=== PATIENT | female | born 1945 | race Caucasian/White ===

== ENCOUNTER 2017-12-21 08:50 | Outpatient (RCR) | payer BC, SELFPAY ==
--- NOTE | 2017-12-21 13:03 | IE_ITS ---
Date: December 21, 2017 Referring: MD Alpesh Cardona M.D. Diagnosis: S/P L RCR and biceps tenodesis P.T. Diagnosis: Same SUBJECTIVE: Coleen states she has minimal discomfort. Only complains of occasional discomfort throughout the antecubital region and flexor surface of her L forearm, particularly nocturnally. This improves if she removes her arm from the sling for short periods of time. It will occasionally interfere with her sleeping patterns. She also complains of occasional discomfort throughout the L trap region. History of Present Illness: 71 yo female well known to me in the past with a cuff repair and biceps tenodesis of her R shoulder approx. 2 years ago. She injured her L shoulder last year and recently underwent a similar procedure for her L arm on 11/13. She was placed in an abduction sling and has been fairly compliant with this use. 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 Pain Ratin-4/10 Pain Location: Throughout the L trap and flexor surface of the forearm and elbow. Prior Level of Function: Independent with all ADLs. Current Level of Function: Unable to use her arm at or above shoulder level, lie on her L side, washing or blow drying her hair, etc.... Social: . 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 Comorbidities: S/P cuff R shoulder. Falls in the last year: __X__ No Reported hospitalizations in the last year - __X__ No Medications: Ibuprofen p.r.n. Quality of Life: __X__ Excellent Standardized Measures: DASH score: __76%__ OBJECTIVE: Posture: Petite. Shoulders and pelvis are level. Observation: (behavior, atrophy, skin color, etc.) Pleasant. No abnormal pain behavior noted. Expresses concern about reinjuring her shoulder. Palpation: Nontender over the AC/SC joints, subacromially or over the greater tuberosity. Mild tenderness able the posterior aspect of the humeral head. She also has some increased tone and tenderness throughout the PC 4,5,6, the middle trap and the rhomboids on the L compared to the R. ROM: Active cervical spine movements extension 60 degrees with mild deviation to the R. Rotation to the R 80 degrees, L 60 degrees. Side bending R 45 degrees compared to 50 at the L. She has end range drawing throughout the L trap with side bending to the R and rotation to the L. When testing her active shoulder movements: forward flexion in the sagittal plane 60 degrees and abduction 45 degrees with scapular substitution at end range and mild discomfort. R thumb is at the T8 level when reaching behind the back and L thumb is 3 in. below. Pure GH movement on the R is at 100 degrees, L 45-50 degrees. AAROM supine position: L shoulder flexion 120 Abduction 80 degrees ER with arm abducted at 45 degrees at 45 degrees IR 60 degrees. She has some mild end range discomfort throughout the GH joint with end range movements.None of these movements were forced. Elbow flexion and extension are full, as well as forearm supination and pronation.She has a Marquez deformity bilaterally. Strength: RC resistance was not performed or elbow flexion or forearm supination. Neuro: Intact. Special Tests: She has a positive Mireles-Papi impingement maneuver on the R. Treatment: IE along with mobilization of the cervical spine and myofascial trigger points and gentle mobilization of the L shoulder girdle with emphasis on the GH joint, along with pt education. IE: X [id number] Manual therapy: ([id number]). Direct treatment time: 60 min Total treatment time: 60 min ASSESSMENT: Patient is a 71-year-old female, referred for PT services with the diagnosis of s/p cuff repair and biceps tenodesis of the L shoulder. Patient presents with clinical signs and symptoms consistent with this diagnosis, as demonstrated by the following impairment level findings: limited ROM of the L shoulder, resulting in diffiuclty with all overhead activities including washing and drying her hair, donning and doffing her clothing, sleeping on L side, etc... Impairments are contributing to the following functional limitations: Patient is assessed as: __X__ Low 38134 complexity, based on the following: History: (list): Recent cuff repair and biceps tenodesis Examination: (list): X See above for functional limitations and impairments. Presentation: X Evolving Decision-Making: X Low complexity 76 % Disability based on DASH __X__ Patient requires skilled PT intervention to remediate the above functional limitations to return to: __X__ Premorbid level of function Prognosis: __X__ Good [] KX modifier to be utilized as justified by above documentation for necessity of continued Physical Therapy intervention to attend to functional deficits which have not been fully remediated as they approach their Medicare cap. STG: __6_ weeks. 1. Increase ROM of the L shoulder to within functional range while protecting the repair, with eventual strengthening exercises in order to normalize her functional use of her arm at or above shoulder level, sleeping on her L side, etc... LTG: __12__ weeks. __X__ Return to premorbid level of function. PLAN: Session today consisted of the evaluation, along with mobilization of the cervical spine, followed by trigger point release techniques to the above mentioned myofascial points. Also, gentle mobilization of the L shoulder girdle with emphasis on the GH joint not exceeding 45 degrees of ER. She is at the 6 week point on Sunday and will have her remove the sling at that time, other than use around her students, and initiate gradual active movements fo the LUE, etc... Will modify the program as her symptoms dictate. Thank you for this referral. Please do not hesitate to contact me with any questions or concerns regarding this patient's plan of care. ALVA/henrik cc:Anshu Gordon MD
== END 2017-12-21 23:59 | disposition home or self-care (01) ==
LOC: PT 08:50
PROVIDERS: PCP Student in an Organized Health Care Education/Training Program; Referring Provider Orthopaedic Surgery Sports Medicine; Visit Provider Orthopaedic Surgery Sports Medicine
DX: Z47.89 Encounter for other orthopedic aftercare (principal); M75.101 Unspecified rotator cuff tear or rupture of right shoulder, not specified as traumatic; M75.102 Unspecified rotator cuff tear or rupture of left shoulder, not specified as traumatic; M75.22 Bicipital tendinitis, left shoulder
CPT/HCPCS: 97140; 97161

== ENCOUNTER 2023-03-07 08:55 | Emergency (ER) | payer BC, SELFPAY ==
[2023-03-07 09:14] VITALS: BP 130/85; PULSE 71; RESP 20; TEMP 36.7; O2SAT 100
--- NOTE | 2023-03-07 09:22 | W.ED.GENAD ---
Discharge Plan Disposition Patient Disposition: Home Condition: Good Discharge Details Clinical Impression: Concussion, Effusion of knee, Contusion of knee Primary Care Provider: Lacie Mata ED Provider: Leonarda Jeff Home Meds and New Rx's Prescriptions: No Action ibuprofen 600 MG tablet 600 mg PO QID PRN (Reason: Pain) Qty: 30 0RF Discharge Instructions Instructions: Concussion (ED), Contusion in Adults (ED) Additional Instructions: As we discussed, the CT scan of your head is reassuring with no evidence of blood. However, I am worried that you have a concussion. As we discussed, please encourage hydration and brain rest. Please follow-up with your primary care in the next 1 to 2 weeks for reevaluation. Regard to your knee, there is no evidence of fracture but I am quite concerned given the amount of swelling that you have. Please encourage rest, ice, elevation. You may use Tylenol and ibuprofen as needed for discomfort. Please continue with the brace to help with swelling and pain as well as support the knee. It is recommended that you have an MRI to further evaluate the ligaments in the knee. Please keep your upcoming appointment with your orthopedic provider in [place]. Please bring the copy of your images with you as well. If you develop any new or worsening symptoms please seek care urgently once again. Referrals: Lacie Mata [Primary Care Provider] - Medical Decision Making Patient is a 77 year old female, brought in by son, with c/c of head, left shoulder and left knee injury. She reports that yesterday she was walking very quickly, patient is a very active dancer, and did not see a step down causing her to fall forward. She states that she initially landed directly onto her right knee. She then fell forward striking the anterior aspect of her head. She denies any loss of consciousness and was assisted by onlookers immediately. She reports that she immediately had hematoma on her forehead and was unable to flex or extend the right knee. Patient states that she also had some discomfort in the left shoulder but that this seems to be getting better. She was seen at urgent care where x-rays of her left shoulder, left hip and left knee were obtained all of which were read as negative. Patient concerned she not have ligamentous exam of the knee and does have a large effusion today. She denies any visual change, no vision nausea or vomiting. Patient is not anticoagulated. Reports that she does have a persistent mild headache for which has been taking Tylenol. On exam, patient appears nontoxic. She is resting comfortably in no acute distress. She does have a focal area of swelling and ecchymosis about the size of the circumferential tennis ball on her forehead. She is neurologically intact. No evidence of basilar skull fracture. Based on patient's age, mechanism of injury and persistant headache, we will move forward with CT of her head. Left shoulder appears to be much improved she is moving her self about the bed with this, no limitations in her range of motion. She of note, patient has had bilateral shoulder surgeries in [place] for rotator cuff repairs. Exam of the left knee is concerning for large effusion. No erythema or warmth. Flexion is slightly limited but she does have much more difficulty with extension. With passive extension, patient is able to get nearly to full. She has intact sensation, ambulatory with antalgic gait. Patient is unable to extend at the knee. She is able to flex at the hip without any discomfort. She had left hip replaced in September but does not have any pain in this area today. She able to range ankle well although she does report that with dorsiflexion, she does have some discomfort in the anterior aspect of the knee. No palpable deformity but quite tender over the patella. Concern for potential patellar patellar fracture or extensor mechanism injury. As her x-ray yesterday was read as negative, I do feel that moving forward with CT is appropriate at this time given high concern for fracture. Patient does have significant history of arthritis. No C-spine, T-spine or L-spine pain with palpation, good range of motion. Declines any analgesics at this time. CT head and knee reviewed by radiologist, no acute findigns. Radiologist does recommend patient have outpatient MRI with the large effusion noted. Foreign bodies were noted and patient was aware of these. Discussed these findings with the patient and her son at length. She is planning to return to [facility] to see her orthopedist next week. Copy of the imaging will be sent. Patient placed in a hinged knee brace to support given the size of the effusion as well as to aid in some stability. We did discuss activities that she should avoid. Return precautions were discussed. We did discuss draining the effusion but at this point, I do not feel that injecting with steroids would be appropriate and I am concerned that would likely recur. We will instead leave this to orthopedics to discuss further. Encouraged rest, ice, elevation. Tylenol and ibuprofen as needed for discomfort. All of her questions and concerns were addressed to screen this plan. Recommended concussion guidelines and discussed these at length with the patient and her son. HPI General Date/Time Provider Initiated Documentation: 03/07/23 09:22. Limitations to Documentation: no limitations. Information obtained by: patient, family (son) and RN notes reviewed. History of Present Illness 77 year old F presents to the emergency department with the chief complaint of head injury, left knee injury, described as moderate, Quality is described as aching, and is localized to the head, left and lower extremity. Patient reports no radiation. Patient started experiencing this day(s) (1) and it has been constant. Immobilization improves symptom(s), Movement worsens symptoms . Patient notes no other symptoms.. Patient did receive the following treatments prior to arrival, none Related Data Home Medications Medication Instructions Recorded Confirmed ibuprofen 600 mg tablet 600 mg PO QID PRN Pain #30 tabs 09/17/14 03/07/23 Previous Rx's Medication Instructions Recorded ibuprofen 600 mg tablet 600 mg PO QID PRN Pain #30 tabs 09/17/14 Allergies Allergy/AdvReac Type Severity Reaction Status Date / Time No Known Allergies Allergy Unverified 09/17/14 13:23 General Stated Complaint: Orthopedic JEANETTE: 4 Review of Systems Constitutional Constitutional: Reports as per HPI, Denies chills, Denies fever(s), Denies frequent falls and Denies weakness Eyes Eyes: Reports as per HPI, Denies blurry vision and Denies change in vision ENT Ears, Nose, Mouth, and Throat: Denies neck pain Cardiovascular Cardiovascular: Reports as per HPI, Denies chest pain, Denies lightheadedness, Denies radiating jaw, neck or arm pain, Denies dyspnea and Denies dyspnea on exertion Respiratory Respiratory: Reports as per HPI, Denies chest congestion, Denies cough, Denies dyspnea and Denies dyspnea on exertion Musculoskeletal Musculoskeletal: Reports as per HPI, Denies back pain, Denies myalgias, Denies muscle cramps, Denies neck pain and Denies numbness Integumentary/Breasts Skin/Breast: Reports as per HPI and Denies rash Neurologic Neurologic: Reports as per HPI, Denies abnormal movements, Denies abnormal speech, Denies frequent falls, Denies localized weakness, Denies numbness, Denies sensory deficit and Denies weakness PFSH All Active Problems (Updated 03/07/23 @ 12:03 by LEV Zhang) Contusion of knee (Acute) Effusion of knee (Acute) Concussion (Acute) Social History Smoking/Tobacco Use Status: Never Smoking risk assessment performed?: Yes Drug use: Never Housing: house Do you feel safe at home: Yes Do you feel safe in your relationship?: Yes Exam Const General: cooperative, healthy appearing, comfortable, no acute distress, well developed and well groomed Nutritional Appearance: average body habitus and well nourished Orientation: alert, awake and oriented x3 HENMT Head: normal to inspection, no palpable skull fracture, normocephalic, no La's sign and contusion Head images: 1. Area of ecchymosis Ears: hearing grossly normal bilaterally, external ears normal and TM's normal bilaterally General nose exam: external nose normal Mouth: oral mucosae normal and moist mucous membranes Throat: posterior oropharynx normal Eyes General: appearance normal, both eyes and all related structures Alignment and Position: alignment normal Periorbital: periorbital findings normal Eyelids: eyelids normal Sclera: sclerae normal Cornea: corneas normal Pupils: PERRL EOM: EOM intact bilaterally Neck Neck: normal visual inspection, full ROM and no lymphadenopathy Resp Effort & Inspection: normal respiratory effort, able to speak in complete sentences and no respiratory distress Auscultation: clear to auscultation bilaterally, no rales, no rhonchi and no wheezes Cardio Rate: regular rate Rhythm: regular rhythm Heart Sounds: S1 normal and S2 normal Back/Spine/Pelvis Cervical Spine: normal cervical lordosis and cervical ROM normal Skin General skin exam: no rashes or lesions noted Neuro General: patient alert, patient awake and patient oriented x3 Cranial Nerves: CN's II-XI intact bilaterally Cognition: normal cognition Speech: speech normal Gait: antalgic Motor: muscle tone normal throughout, strength 5/5 throughout, no pronator drift, no movement abnormalities noted and no fasciculations Sensory Exam: no sensory deficits noted Coordination: [id number] test normal and [id number] test normal Extrem General: normal to inspection, capillary refill normal, no pedal edema and no calf tenderness Knee images: 1. Area of maximal discomfort at patella with large effusion. No erythema or warmth. No discharge or opening the skin. She is 2+ distal pulses. Calf is soft and nontender. No pain over the fibular head or neck. Full range of motion of the ankle, able to have 5 out of 5 strength in the ankle. She is ligamentously intact with varus and valgus stress testing as well as anterior/posterior drawer testing. Primary area of concern is for extension as this is very limited for the patient. She is able to reach extension with passive movements but unable to actively extend at the knee. Course Vital Signs Vital signs: Vital Signs Temperature 36.7 C 03/07/23 09:14 Pulse 71 03/07/23 09:14 Respiratory Rate 20 03/07/23 09:14 Blood Pressure 130/85 03/07/23 09:14 Pulse Oximetry 100 03/07/23 09:14 Temperature 36.7 C 03/07/23 09:14 Temperature Source Temporal Artery Scan 03/07/23 09:14 Pulse 71 03/07/23 09:14 Respiratory Rate 20 03/07/23 09:14 Respiratory Effort Normal 03/07/23 09:16 Blood Pressure 130/85 03/07/23 09:14 Pulse Oximetry 100 03/07/23 09:14 Oxygen Delivery Method Room Air 03/07/23 09:14 Oxygen Flow Rate 0 03/07/23 09:14
--- NOTE | 2023-03-07 09:30 | DI.CT_ITS ---
Exam(s) CT HEAD WO EXAM: CT HEAD WO CLINICAL HISTORY: fall, struck anteriorly. TECHNIQUE: Imaging Protocol: Axial computed tomography images with coronal and sagittal reformatted images were created and reviewed COMPARISON: No exams were available for comparison FINDINGS: There are no skull fractures. There is small fluid level in left maxillary sinus. There is no evidence of intracranial hemorrhage, mass effect, or shift of midline structures. There are no extra-axial fluid collections. The ventricles are not enlarged or shifted and there is no blo od within the ventricular system nor within the basal cisterns. IMPRESSION: No acute intracranial findings on this noninfused CT scan of the brain. RADIATION DOSE DELIVERED: Total DLP DATA REPOSITORY: All CT scans at this facility are submitted to the National Radiology Data Registry (NRDR) Dose Index Registry (DIR) with the [employer] ([employer]). RADIATION OPTIMIZATION: All CT scans at this facility use at least one of these dose optimization te chniques: automated exposure control; mA and/or kV adjustment per patient size (includes targeted exa ms where dose is matched to clinical indication); or iterative reconstruction.
--- NOTE | 2023-03-07 09:45 | DI.CT_ITS ---
Exam(s) CT LOWER EXTREMITY LT WO EXAM: CT LOWER EXTREMITY LT WO CLINICAL HISTORY: fell on leftknee, unable to extend. TECHNIQUE: Imaging Protocol: Axial computed tomography images with coronal and sagittal reformatted images were created and reviewed. CONTRAST MATERIAL: None COMPARISON: There are no plain films of the knee available at the time of this CT interpretation. FINDINGS: There is a prominent knee joint effusion. No evidence of acute fracture. Tibial plateau appears int act. There is a corticated loose body in the anterior aspect of the knee joint measuring 8 x 5 mm. There also appear to be loose bodies in a small Crum cyst in the medial popliteal fossa. There are moderate degenerative changes in the medial and lateral compartments. Also in the patellof emoral compartment. IMPRESSION: Degenerative changes including loose intra-articular bodies anteriorly and posteriorly within a Crum cyst. There are no obvious fractures. Large joint effusion noted. This probably signifies internal derangement. Follow-up MRI can be perf ormed for added sensitivity/specificity. RADIATION DOSE DELIVERED: Total DLP DATA REPOSITORY: All CT scans at this facility are submitted to the National Radiology Data Registry (NRDR) Dose Index Registry (DIR) with the [employer] ([employer]). RADIATION OPTIMIZATION: All CT scans at this facility use at least one of these dose optimization te chniques: automated exposure control; mA and/or kV adjustment per patient size (includes targeted exa ms where dose is matched to clinical indication); or iterative reconstruction.
== END 2023-03-07 12:15 | disposition home or self-care (01) ==
PROVIDERS: Emergency Provider Physician Assistant; PCP Student in an Organized Health Care Education/Training Program
DX: S06.0XAA Concussion with loss of consciousness status unknown, initial encounter; S80.02XA Contusion of left knee, initial encounter; M25.462 Effusion, left knee; W10.9XXA Fall (on) (from) unspecified stairs and steps, initial encounter; S00.83XA Contusion of other part of head, initial encounter
CPT/HCPCS: 29505; 99284; 70450; 73700; 99283